=== PATIENT | male | born 1965 | race Caucasian/White ===

== ENCOUNTER 2017-08-11 08:10 | Day surgery (SDC) | payer BC ==
[2017-08-11 08:52] VITALS: BMI 25.0
[2017-08-11] MEDS ORDERED: Lactated Ringer's 500 ML IV ONE ×2 (09:40)
--- NOTE | 2017-08-11 09:40 | CP.SDSHP ---
Same Day Surgery H & P - History Proposed Procedure: EGD/COLONSCOPY Pre-Op Diagnosis: SEE NOTES - Previous Medical/Surgical History Neuro: Backaches Misc: Other Pain: 4.Moderate Pain - Allergies Allergies: Allergies No Known Allergies Allergy (Verified 08/11/17 08:50) - Physical Exam General Appearance: N Vital Signs: Vital Signs 08/11/17 08:30 Temperature 98.2 F Pulse Rate 84 Respiratory 17 Rate Blood Pressure 111/73 O2 Sat by Pulse 100 Oximetry Mental Status: Alert & Oriented x3 Neuro: WNL Heart: WNL Lungs: WNL GI: Other - {Optional Preform as Required} Breast: WNL Abdomen: Other Rectal: Other Integument: WNL : WNL Ortho: Other ENT: WNL - Impression Pt. Evaluated Today:Candidate for Anesthesia & Procedure: Yes - Date & Time Time: 09:39 Short Stay Discharge - Short Stay Discharge Admitting Diagnosis/Reason for Visit: DYSPEPSIA Disposition: HOME/ ROUTINE
[2017-08-11] MEDS ORDERED: Midazolam 2 MG/2 ML VIAL ONE (09:43)
[2017-08-11] MEDS ORDERED: Propofol 10 mg/ml Inj (20 ML) ONE (09:43)
[2017-08-11] MEDS ORDERED: Belladonna-Phenobarbital PO ONE (10:25)
[2017-08-11 10:26] VITALS: TEMP 97.4
[2017-08-11] MEDS ORDERED: Pantoprazole 40 mg EC Tab PO ONE (10:45)
[2017-08-11 11:20] VITALS: BP 111/75; PULSE 56; RESP 17; O2SAT 98
== END 2017-08-11 11:16 | disposition home or self-care (01) ==
LOC: C.ENDO 08:10
PROVIDERS: ATTEND Specialist
DX: R10.13 Epigastric pain (principal); K20.9 Esophagitis, unspecified; K44.9 Diaphragmatic hernia without obstruction or gangrene; K62.5 Hemorrhage of anus and rectum; R19.4 Change in bowel habit; K64.4 Residual hemorrhoidal skin tags; K64.8 Other hemorrhoids; K63.5 Polyp of colon
CPT/HCPCS: 43239; 45385; 88305; J2001; J2250; J2704; J7120